=== PATIENT | female | born 1935 | race Caucasian/White ===

== ENCOUNTER 2018-07-17 14:01 | Observation (INO) ==
[2018-07-17] MEDS ORDERED: ACETAMINOPHEN 325 MG TABLET PO PRN ×2 (14:10→14:11)
[2018-07-17] MEDS ORDERED: ONDANSETRON 4 MG/2 ML VIAL IV PRN ×2 (14:10→14:11)
[2018-07-17] MEDS ORDERED: ZALEPLON 5 MG CAPSULE PO PRN ×2 (14:10→14:11)
[2018-07-17] MEDS ORDERED: MAGNESIUM SULF RIDER 2 GM in PREMIX 1 EACH IV PRN (14:11)
[2018-07-17] MEDS ORDERED: PROMETHAZINE 25 MG TABLET PO PRN (14:11)
[2018-07-17] MEDS ORDERED: DOCUSATE SODIUM 100 MG CAPSULE PO PRN (14:11)
[2018-07-17] MEDS ORDERED: LACTULOSE 20 GM/30 ML UDCUP PO PRN (14:11)
[2018-07-17] MEDS ORDERED: MAGNESIUM SULF RIDER 4 GM in PREMIX 1 EACH IV PRN (14:11)
[2018-07-17] MEDS ORDERED: diphenhydrAMINE CAP 25 MG CAPSULE PO PRN (14:11)
[2018-07-17] MEDS ORDERED: POTASSIUM CHLORIDE 20 MEQ TABLET PO PRN (14:11)
[2018-07-17] MEDS ORDERED: guaiFENesin/DM ER 600-30 MG TABLET PO PRN (14:11)
[2018-07-17] MEDS ORDERED: MORPHINE 4 MG/1 ML VIAL IV PRN (14:11)
[2018-07-17] MEDS ORDERED: ENOXAPARIN 40 MG/0.4 ML SYRINGE SUBCUT SCH (14:30)
[2018-07-17 15:38] LABS: Basophils # 0.1 10*3/uL (0.0-0.2); Basophils % 1.1 % (0.0-0.8); Eosinophils # 0.2 10*3/uL (0.0-0.87); Eosinophils % 3.3 % (0.00-10.9); Hematocrit 40.9 VOL% (35.7-47.0); Hemoglobin 13.4 GM/DL (12.0-16.0); Immature Granulocytes % 0.2 %; Immature Granulocytes Absolute 0.01 #; Lymphocytes # 2.2 10*3/uL (1.4-4.0); Lymphocytes % 34.4 % (21.3-54.2); Mean Corpuscular HGB Conc 32.8 GM/DL (32-36); Mean Corpuscular Hemoglobin 33 PG (27-34); Mean Platelet Volume 10.1 FL (9.6-12.0); Monocytes # 0.8 10*3/uL (0.11-0.8); Monocytes % 12.3 % (1.7-12.7); Neutrophils # 3.1 10*3/uL (1.4-7.4); Neutrophils % 48.7 % (38.7-73.9); Platelet Count 227 T/CUMM (130-400); Red Blood Count 4.09 MC/CUMM (3.8-5.5); Red Cell Distribution Width 12.9 % (9.3-17.3); White Blood Count 6.4 T/CUMM (4-12)
[2018-07-17 15:42] LABS: PT Patient Result 10.7 SECS
[2018-07-17 16:00] LABS: Albumin 4.4 G/DL (3.4-5.0); Bilirubin,Direct 0.19 MG/DL (0.0-0.20); Bilirubin,Indirect 0.5 MG/DL (0.0-1.0); Bilirubin,Total 0.7 MG/DL (0.2-1.0); Total Protein 8.4 G/DL (6.4-8.3)
[2018-07-17 16:05] LABS: Albumin 4.2 G/DL (3.4-5.0); Bilirubin,Total 0.7 MG/DL (0.2-1.0); Calcium 9.3 MG/DL (8.5-10.1); Osmolality,Calculated 268.4 MOS/KG (273-304); Potassium 3.7 MMOL/L (3.5-5.1); Risk Ratio 3.55; Thyroid Stimulating Hormone 1.34 uIU/ml (0.358-3.74); Total Protein 8.5 G/DL (6.4-8.3); VLDL CHOLESTEROL 24.2 MG/DL
[2018-07-17] MEDS ORDERED: traMADol 50 MG TABLET PO PRN (16:17)
[2018-07-17] MEDS: FOLIC ACID 1 MG TABLET PO SCH (16:21)
[2018-07-17] MEDS: DIAZEPAM 2 MG TABLET PO SCH ×2 (16:24→22:08)
[2018-07-17] MEDS: MAGNESIUM OXIDE 400 MG TABLET PO SCH ×2 (16:24→22:08)
[2018-07-17] MEDS ORDERED: DONEPEZIL 5 MG TABLET PO SCH (21:00)
[2018-07-17] MEDS: DOXYCYCLINE HYCLATE 100 MG CAPSULE PO SCH (22:07)
[2018-07-17] MEDS: SPIRONOLACTONE 25 MG TABLET PO SCH (22:07)
[2018-07-17] MEDS: DILTIAZEM CD 120 MG CAPSULE PO SCH (22:07)
[2018-07-17] MEDS: FUROSEMIDE 40 MG/4 ML VIAL IV SCH (23:24)
[2018-07-18 05:12] LABS: Basophils # 0.1 10*3/uL (0.0-0.2); Basophils % 1.5 % (0.0-0.8); Eosinophils # 0.5 10*3/uL (0.0-0.87); Hematocrit 36.3 VOL% (35.7-47.0); Hemoglobin 11.8 GM/DL (12.0-16.0); Immature Granulocytes % 0.2 %; Immature Granulocytes Absolute 0.01 #; Lymphocytes # 1.7 10*3/uL (1.4-4.0); Lymphocytes % 41.8 % (21.3-54.2); Mean Corpuscular HGB Conc 32.5 GM/DL (32-36); Mean Corpuscular Hemoglobin 33 PG (27-34); Mean Corpuscular Volume 100.3 FL (87-102); Mean Platelet Volume 9.8 FL (9.6-12.0); Monocytes # 0.5 10*3/uL (0.11-0.8); Neutrophils # 1.3 10*3/uL (1.4-7.4); Neutrophils % 30.5 % (38.7-73.9); Platelet Count 199 T/CUMM (130-400); Red Blood Count 3.62 MC/CUMM (3.8-5.5); White Blood Count 4.1 T/CUMM (4-12)
[2018-07-18 05:22] LABS: Calcium 8.6 MG/DL (8.5-10.1); Osmolality,Calculated 275.7 MOS/KG (273-304); Potassium 3.2 MMOL/L (3.5-5.1)
[2018-07-18 05:36] LABS: Eosinophils 14 % (0-10); Hypochromasia 1+; Lymphocytes 37 % (20-55); Platelet Estimate Adequate; Segmented Neutrophils 44 % (50-85); Total Cells Counted 100
[2018-07-18] MEDS ORDERED: LEVOTHYROXINE 75 MCG TABLET PO SCH (06:30)
[2018-07-18] MEDS ORDERED: POTASSIUM CHLORIDE 20 MEQ TABLET PO ONE ×3 (06:42→09:00)
[2018-07-18 08:07] VITALS: BP 117/54
[2018-07-18] MEDS: FOLIC ACID 1 MG TABLET PO SCH (08:42)
[2018-07-18] MEDS: SPIRONOLACTONE 25 MG TABLET PO SCH (08:42)
[2018-07-18] MEDS: DOXYCYCLINE HYCLATE 100 MG CAPSULE PO SCH (08:42)
[2018-07-18] MEDS: MAGNESIUM OXIDE 400 MG TABLET PO SCH (08:42)
[2018-07-18] MEDS: DILTIAZEM CD 120 MG CAPSULE PO SCH (08:42)
[2018-07-18] MEDS: FUROSEMIDE 40 MG/4 ML VIAL IV SCH (08:43)
[2018-07-18] MEDS: DIAZEPAM 2 MG TABLET PO SCH (08:43)
[2018-07-18] MEDS ORDERED: ASPIRIN EC 81 MG TABLET PO SCH (09:00)
[2018-07-18] MEDS ORDERED: PANTOPRAZOLE 40 MG TABLET PO SCH ×2 (09:00)
[2018-07-18] MEDS ORDERED: MULTIVITAMIN (BEROCCA) TABLET PO SCH (09:00)
== END 2018-07-18 10:08 | disposition home or self-care (01) ==
LOC: N.TELEN 14:57 → INTOOBSV 14:57
PROVIDERS: ADMIT Internal Medicine Cardiovascular Disease; ATTEND Internal Medicine Cardiovascular Disease

== ENCOUNTER 2019-07-15 15:24 | Observation (INO) ==
[2019-07-15] MEDS ORDERED: ONDANSETRON 4 MG/2 ML VIAL IV PRN (19:29)
[2019-07-15] MEDS ORDERED: LACTULOSE 20 GM/30 ML UDCUP PO PRN (19:29)
[2019-07-15] MEDS ORDERED: SODIUM CHLORIDE 0.9% 1,000 ML IV SCH (19:30)
[2019-07-15] MEDS ORDERED: ALUM/MAG/SIMETH/LIDO VISC 1:1 30 ML BOTTLE PO ONE (19:35)
[2019-07-15] MEDS ORDERED: ACETAMINOPHEN 325 MG TABLET PO PRN (19:35)
[2019-07-15] MEDS ORDERED: TRIAMCINOLONE 0.1% OINT 15 GM TUBE TOP PRN (19:37)
[2019-07-15] MEDS ORDERED: LORazepam 2 MG/1 ML VIAL IV PRN (19:37)
[2019-07-15] MEDS ORDERED: NITROGLYCERIN SL 0.4 MG TABLET SL PRN (19:39)
[2019-07-15] MEDS ORDERED: MULTIVITAMIN INJ 10 ML in SODIUM CHLORIDE 0.45% 1,000 ML IV SCH (20:00)
[2019-07-15] MEDS ORDERED: ENOXAPARIN 40 MG/0.4 ML SYRINGE SUBCUT SCH (21:00)
[2019-07-15] MEDS ORDERED: DONEPEZIL 10 MG TABLET PO SCH (21:00)
[2019-07-15] MEDS: DOCUSATE SODIUM 100 MG CAPSULE PO SCH (22:15)
[2019-07-15] MEDS: MAGNESIUM OXIDE 400 MG TABLET PO SCH (22:15)
[2019-07-15] MEDS: 1: THIAMINE INJ 100 MG, MULTIVITAMIN INJ 10 ML, FOLIC ACID INJ 1 MG in SODIUM CHLORIDE 0 IV SCH (22:16)
[2019-07-15 23:15] LABS: Basophils # 0.1 10*3/uL (0.0-0.2); Basophils % 1.1 % (0.0-0.8); Eosinophils # 0.2 10*3/uL (0.0-0.87); Eosinophils % 4.1 % (0.00-10.9); Hematocrit 38.1 VOL% (35.7-47.0); Hemoglobin 12.2 GM/DL (12.0-16.0); Immature Granulocytes % 0.4 %; Immature Granulocytes Absolute 0.02 #; Lymphocytes % 37.4 % (21.3-54.2); Mean Corpuscular Volume 103.5 FL (87-102); Mean Platelet Volume 10.4 FL (9.6-12.0); Monocytes % 11.4 % (1.7-12.7); Neutrophils % 45.6 % (38.7-73.9); Platelet Count 218 T/CUMM (130-400); Red Blood Count 3.68 MC/CUMM (3.8-5.5); Red Cell Distribution Width 12.7 % (9.3-17.3); White Blood Count 5.4 T/CUMM (4-12)
[2019-07-15 23:38] LABS: Albumin 3.3 G/DL (3.4-5.0); Bilirubin,Total 0.5 MG/DL (0.2-1.0); Calcium 9.3 MG/DL (8.5-10.1); Osmolality,Calculated 272.1 MOS/KG (273-304); Total Protein 7.3 G/DL (6.4-8.3)
[2019-07-15 23:41] LABS: Troponin I < 0.015 NG/ML (0.00-0.045)
[2019-07-16 05:02] LABS: Basophils # 0.1 10*3/uL (0.0-0.2); Basophils % 1.4 % (0.0-0.8); Eosinophils # 0.2 10*3/uL (0.0-0.87); Eosinophils % 4.8 % (0.00-10.9); Hematocrit 34.4 VOL% (35.7-47.0); Hemoglobin 11.4 GM/DL (12.0-16.0); Immature Granulocytes % 0.2 %; Immature Granulocytes Absolute 0.01 #; Lymphocytes # 1.7 10*3/uL (1.4-4.0); Lymphocytes % 39.8 % (21.3-54.2); Mean Corpuscular HGB Conc 33.1 GM/DL (32-36); Mean Corpuscular Volume 101.5 FL (87-102); Mean Platelet Volume 10.2 FL (9.6-12.0); Monocytes % 11.2 % (1.7-12.7); Neutrophils % 42.6 % (38.7-73.9); Platelet Count 195 T/CUMM (130-400); Red Blood Count 3.39 MC/CUMM (3.8-5.5); Red Cell Distribution Width 12.6 % (9.3-17.3); White Blood Count 4.4 T/CUMM (4-12)
[2019-07-16 05:38] LABS: Bilirubin,Total 0.6 MG/DL (0.2-1.0); Calcium 8.7 MG/DL (8.5-10.1); Total Protein 6.7 G/DL (6.4-8.3)
[2019-07-16 05:41] LABS: Troponin I < 0.015 NG/ML (0.00-0.045)
[2019-07-16 05:52] LABS: Risk Ratio 2.59; VLDL CHOLESTEROL 19.4 MG/DL
[2019-07-16] MEDS ORDERED: LEVOTHYROXINE 88 MCG TABLET PO SCH (06:30)
[2019-07-16] MEDS: 1: THIAMINE INJ 100 MG, MULTIVITAMIN INJ 10 ML, FOLIC ACID INJ 1 MG in SODIUM CHLORIDE 0 IV SCH (08:45)
[2019-07-16] MEDS ORDERED: THIAMINE 200 MG/2 ML VIAL IV SCH (09:00)
[2019-07-16] MEDS ORDERED: MELOXICAM 7.5 MG TABLET PO SCH (09:00)
[2019-07-16] MEDS ORDERED: FOLIC ACID INJ 1 MG in SYRINGE 1 EACH IV SCH (09:00)
[2019-07-16] MEDS ORDERED: CETIRIZINE 10 MG TABLET PO SCH (09:00)
[2019-07-16] MEDS ORDERED: PANTOPRAZOLE 40 MG TABLET PO SCH (09:00)
[2019-07-16] MEDS ORDERED: DILTIAZEM CD 120 MG CAPSULE PO SCH (09:00)
[2019-07-16] MEDS ORDERED: MEMANTINE 10 MG TABLET PO SCH (09:00)
[2019-07-16] MEDS ORDERED: NON-FORMULARY MEDICATION (Alendronate 70 MG) PO SCH (09:00)
[2019-07-16] MEDS ORDERED: ASPIRIN EC 81 MG TABLET PO SCH (09:00)
[2019-07-16] MEDS: DOCUSATE SODIUM 100 MG CAPSULE PO SCH (09:39)
[2019-07-16] MEDS: MAGNESIUM OXIDE 400 MG TABLET PO SCH (09:39)
[2019-07-16 10:16] LABS: Apearance,Urine CLEAR (Clear); Bacteria,Urine Occasional /HPF (Few); Bilirubin,Urine Negative (Negative); Blood, Urine Negative (Negative); Glucose,Urine (UA) Negative (Negative); Hyaline Casts,Urine 1 /LPF (0-3); Ketones,Urine Negative (Negative); Nitrite,Urine Negative (Negative); Protein,Urine Negative; RBC,Urine <1 /HPF (0-4); Squamous Epithelial Cell,Urine Occasional /HPF (0-10); Urine Color Yellow (Yellow); Urine Specific Gravity 1.006 (1.001-1.035); Urine Urobilinogen < 2.0 EU/DL (0.2-1.0); WBC,Urine 7 /HPF (0-6)
[2019-07-16 11:43] VITALS: BP 146/59
== END 2019-07-16 17:35 | disposition home health service (06) ==
LOC: N.2W
PROVIDERS: ADMIT Internal Medicine; ATTEND Internal Medicine

== ENCOUNTER 2020-10-06 18:58 | Inpatient (IN) ==
[2020-10-06] MEDS ORDERED: ONDANSETRON 4 MG/2 ML VIAL IV STA (19:44)
[2020-10-06] MEDS ORDERED: KETOROLAC 30 MG/1 ML VIAL IV STA (19:44)
[2020-10-06] MEDS ORDERED: SODIUM CHLORIDE 0.9% 500 ML IV STA (19:44)
[2020-10-06 20:42] LABS: Basophils # 0.1 10*3/uL (0.0-0.2); Basophils % 0.5 % (0.0-0.8); Eosinophils # 0.1 10*3/uL (0.0-0.87); Eosinophils % 1.5 % (0.00-10.9); Hematocrit 41.6 VOL% (35.7-47.0); Hemoglobin 13.8 GM/DL (12.0-16.0); Immature Granulocytes % 0.5 %; Immature Granulocytes Absolute 0.05 #; Lymphocytes # 1.8 10*3/uL (1.4-4.0); Lymphocytes % 18.3 % (21.3-54.2); Mean Corpuscular HGB Conc 33.2 GM/DL (32-36); Mean Corpuscular Volume 106.1 FL (87-102); Mean Platelet Volume 11.1 FL (9.6-12.0); Monocytes % 4.3 % (1.7-12.7); Neutrophils % 74.9 % (38.7-73.9); Platelet Count 182 T/CUMM (130-400); Red Blood Count 3.92 MC/CUMM (3.8-5.5); Red Cell Distribution Width 14.2 % (9.3-17.3); White Blood Count 9.6 T/CUMM (4-12)
[2020-10-06 21:03] LABS: Albumin 3.6 G/DL (3.4-5.0); Bilirubin,Total 0.5 MG/DL (0.2-1.0); Calcium 9.2 MG/DL (8.5-10.1); Osmolality,Calculated 278.5 MOS/KG (273-304); Total Protein 7.5 G/DL (6.4-8.2)
[2020-10-06] MEDS ORDERED: guaiFENesin/DM ER 600-30 MG TABLET PO PRN (21:03)
[2020-10-06] MEDS ORDERED: DEXTROSE 50% 25 GM/50 ML VIAL IV PRN (21:03)
[2020-10-06] MEDS ORDERED: hydrALAZINE 20 MG/1 ML VIAL IV PRN (21:03)
[2020-10-06] MEDS ORDERED: GLUCAGON 1 MG VIAL IM PRN (21:03)
[2020-10-06] MEDS ORDERED: ONDANSETRON 4 MG/2 ML VIAL IV PRN (21:03)
[2020-10-06] MEDS ORDERED: NICOTINE 21 MG/24 HR PATCH TRANSDERM PRN (21:03)
[2020-10-06] MEDS ORDERED: ZALEPLON 5 MG CAPSULE PO PRN (21:03)
[2020-10-06 21:33] LABS: Bilirubin,Urine Negative (Negative); Blood, Urine Negative (Negative); Glucose,Urine (UA) Negative (Negative); Hyaline Casts,Urine 4 /LPF (0-3); Ketones,Urine Negative (Negative); Mucus,Urine Occasional /LPF (Occasional); Nitrite,Urine Negative (Negative); Protein,Urine Negative; Urine Appearance CLEAR (Clear); Urine Color Straw (Yellow); Urine Specific Gravity 1.009 (1.001-1.035); Urine Urobilinogen < 2.0 EU/DL (0.2-1.0)
[2020-10-06] MEDS ORDERED: diphenhydrAMINE 50 MG/1 ML VIAL IV STA (21:34)
[2020-10-06] MEDS: MORPHINE 4 MG/1 ML VIAL IV PRN (23:20)
[2020-10-07] MEDS: DEXT 5% NACL 0.9% KCL 40 MEQ 40 MEQ/1,000 ML BAG IV SCH (01:38)
[2020-10-07 05:19] LABS: Basophils % 0.5 % (0.0-0.8); Eosinophils # 0.2 10*3/uL (0.0-0.87); Eosinophils % 1.9 % (0.00-10.9); Hematocrit 40.8 VOL% (35.7-47.0); Immature Granulocytes % 0.3 %; Immature Granulocytes Absolute 0.02 #; Lymphocytes # 2.2 10*3/uL (1.4-4.0); Lymphocytes % 28.7 % (21.3-54.2); Mean Corpuscular HGB Conc 31.9 GM/DL (32-36); Mean Corpuscular Volume 112.1 FL (87-102); Mean Platelet Volume 11.2 FL (9.6-12.0); Monocytes % 6.2 % (1.7-12.7); Neutrophils % 62.4 % (38.7-73.9); Platelet Count 167 T/CUMM (130-400); Red Blood Count 3.64 MC/CUMM (3.8-5.5); Red Cell Distribution Width 14.2 % (9.3-17.3); White Blood Count 7.8 T/CUMM (4-12)
[2020-10-07 05:46] LABS: Platelet Estimate Adequate
[2020-10-07 05:49] LABS: Albumin 3.4 G/DL (3.4-5.0); Bilirubin,Total 0.7 MG/DL (0.2-1.0); Calcium 8.7 MG/DL (8.5-10.1); Osmolality,Calculated 280.4 MOS/KG (273-304); Potassium 4.2 MMOL/L (3.5-5.1)
[2020-10-07] MEDS ORDERED: CLINDAMYCIN INJ 900 MG/50 ML PREMIX IV ONE (08:00)
[2020-10-07] MEDS: PANTOPRAZOLE 40 MG TABLET PO SCH (08:52)
[2020-10-07] MEDS ORDERED: fentaNYL 100 MCG/2 ML VIAL ONE (09:02)
[2020-10-07] MEDS ORDERED: ePHEDrine 50 MG/ML VIAL ONE (09:16)
[2020-10-07 09:46] LABS: Total Protein (Chem) 7.1 G/DL (6.4-8.3)
[2020-10-07 10:10] LABS: Albumin (SPE) 4.4 G/DL (3.2-5.3); Albumin (SPE) Rel % 61.7 %; Alpha 1 (SPE) 0.2 G/DL (0.1-0.4); Alpha 1 (SPE) Rel % 2.4 %; Alpha 2 (SPE) 0.9 G/DL (0.4-1.0); Alpha 2 (SPE) Rel % 12.2 %; Beta (SPE) 0.8 G/DL (0.5-1.1); Beta (SPE) Rel % 11.7 %; Gamma (SPE) 0.9 G/DL (0.7-1.7)
[2020-10-07] MEDS ORDERED: BISACODYL 10 MG SUPP RECTAL PRN (10:19)
[2020-10-07] MEDS ORDERED: MAGNESIUM HYDROXIDE SUSP 30 ML UDCUP PO PRN (10:19)
[2020-10-07] MEDS ORDERED: LACTULOSE 20 GM/30 ML UDCUP PO PRN (10:19)
[2020-10-07] MEDS ORDERED: PROMETHAZINE 25 MG/1 ML VIAL IM PRN (10:19)
[2020-10-07] MEDS ORDERED: NEOSTIGMINE 10 MG/10 ML VIAL ONE (10:22)
[2020-10-07] MEDS ORDERED: GLYCOPYRROLATE 0.4 MG/2 ML VIAL ONE (10:22)
[2020-10-07] MEDS ORDERED: SEVOFLURANE 1 UNIT/15 MINUTE INH ONE (10:23)
[2020-10-07] MEDS ORDERED: SODIUM CHLORIDE 0.9% 1,000 ML IV ONE (10:23)
[2020-10-07] MEDS ORDERED: ONDANSETRON 4 MG/2 ML VIAL IV PRN (10:43)
[2020-10-07] MEDS ORDERED: HYDROmorphone 2 MG/1 ML VIAL IV PRN (10:43)
[2020-10-07] MEDS ORDERED: PROMETHAZINE INJ 25 MG in SODIUM CHLORIDE 0.9% 50 ML IV PRN (10:43)
[2020-10-07] MEDS ORDERED: MEPERIDINE 25 MG/1 ML VIAL IV PRN (10:43)
[2020-10-07] MEDS ORDERED: TUBERCULIN SKIN TEST 0.1 ML SYRINGE INTRADERM ONE (11:30)
[2020-10-07] MEDS: LACTATED RINGERS 1,000 ML IV SCH (12:51)
[2020-10-07] MEDS: diphenhydrAMINE 50 MG/1 ML VIAL IV PRN ×2 (13:12→16:35)
[2020-10-07] MEDS: MORPHINE 4 MG/1 ML VIAL IV PRN (15:03)
[2020-10-07] MEDS ORDERED: TRIAMCINOLONE 0.1% OINT 15 GM TUBE TOP PRN (15:45)
[2020-10-07] MEDS ORDERED: NITROGLYCERIN SL 0.4 MG TABLET SL PRN (15:45)
[2020-10-07] MEDS: LORazepam 2 MG/1 ML VIAL IV PRN (16:34)
[2020-10-07] MEDS: CLINDAMYCIN INJ 900 MG/50 ML PREMIX IV SCH ×2 (16:55→23:06)
[2020-10-07] MEDS: DONEPEZIL 10 MG TABLET PO SCH (20:27)
[2020-10-07] MEDS: MAGNESIUM OXIDE 400 MG TABLET PO SCH (20:27)
[2020-10-07] MEDS: DOCUSATE SODIUM 100 MG CAPSULE PO SCH (20:27)
[2020-10-08] MEDS: LORazepam 2 MG/1 ML VIAL IV PRN (01:28)
[2020-10-08 05:01] LABS: Basophils % 0.3 % (0.0-0.8); Eosinophils # 0.1 10*3/uL (0.0-0.87); Eosinophils % 1.6 % (0.00-10.9); Hematocrit 35.6 VOL% (35.7-47.0); Hemoglobin 11.3 GM/DL (12.0-16.0); Immature Granulocytes % 0.5 %; Immature Granulocytes Absolute 0.03 #; Lymphocytes # 0.6 10*3/uL (1.4-4.0); Lymphocytes % 10.5 % (21.3-54.2); Mean Corpuscular HGB Conc 31.7 GM/DL (32-36); Mean Corpuscular Volume 111.6 FL (87-102); Mean Platelet Volume 11.5 FL (9.6-12.0); Monocytes % 4.9 % (1.7-12.7); Neutrophils % 82.2 % (38.7-73.9); Platelet Count 145 T/CUMM (130-400); Red Blood Count 3.19 MC/CUMM (3.8-5.5); Red Cell Distribution Width 14.3 % (9.3-17.3); White Blood Count 6.1 T/CUMM (4-12)
[2020-10-08 05:06] LABS: Osmolality,Calculated 274.8 MOS/KG (273-304); Potassium 4.7 MMOL/L (3.5-5.1)
[2020-10-08 05:48] LABS: Anisocytosis Slight; Macrocytosis 1+; Platelet Estimate Adequate
[2020-10-08] MEDS: ENOXAPARIN 30 MG/0.3 ML SYRINGE SUBCUT SCH (05:55)
[2020-10-08] MEDS: DEXT 5% NACL 0.9% KCL 40 MEQ 40 MEQ/1,000 ML BAG IV SCH ×3 (07:42→16:11)
[2020-10-08] MEDS: LACTATED RINGERS 1,000 ML IV SCH (07:43)
[2020-10-08] MEDS: ASPIRIN EC 81 MG TABLET PO SCH (08:23)
[2020-10-08] MEDS: FUROSEMIDE 20 MG TABLET PO SCH (08:24)
[2020-10-08] MEDS: PANTOPRAZOLE 40 MG TABLET PO SCH (08:24)
[2020-10-08] MEDS: DILTIAZEM CD 120 MG CAPSULE PO SCH (08:24)
[2020-10-08] MEDS: DOCUSATE SODIUM 100 MG CAPSULE PO SCH ×2 (08:24→20:46)
[2020-10-08] MEDS: MAGNESIUM OXIDE 400 MG TABLET PO SCH ×2 (08:24→20:46)
[2020-10-08] MEDS: Memantine 28 mg capsule,sprinkle,ER 24hr PO SCH (08:54)
[2020-10-08] MEDS ORDERED: LEVOTHYROXINE 88 MCG TABLET PO SCH (09:00)
[2020-10-08] MEDS: diphenhydrAMINE CAP 25 MG CAPSULE PO PRN ×2 (09:30→18:26)
[2020-10-08] MEDS: DONEPEZIL 10 MG TABLET PO SCH (20:46)
[2020-10-09] MEDS: ENOXAPARIN 30 MG/0.3 ML SYRINGE SUBCUT SCH (03:25)
[2020-10-09] MEDS: LACTATED RINGERS 1,000 ML IV SCH (03:52)
[2020-10-09 05:49] LABS: Basophils % 0.3 % (0.0-0.8); Eosinophils # 0.2 10*3/uL (0.0-0.87); Eosinophils % 2.6 % (0.00-10.9); Hematocrit 32.6 VOL% (35.7-47.0); Hemoglobin 10.6 GM/DL (12.0-16.0); Immature Granulocytes % 0.6 %; Immature Granulocytes Absolute 0.04 #; Lymphocytes # 1.3 10*3/uL (1.4-4.0); Mean Corpuscular HGB Conc 32.5 GM/DL (32-36); Mean Corpuscular Volume 110.1 FL (87-102); Mean Platelet Volume 11.7 FL (9.6-12.0); Neutrophils % 68.5 % (38.7-73.9); Platelet Count 133 T/CUMM (130-400); Red Blood Count 2.96 MC/CUMM (3.8-5.5); Red Cell Distribution Width 14.2 % (9.3-17.3); White Blood Count 6.7 T/CUMM (4-12)
[2020-10-09 06:02] LABS: Calcium 7.5 MG/DL (8.5-10.1); Osmolality,Calculated 272.8 MOS/KG (273-304); Potassium 4.8 MMOL/L (3.5-5.1)
[2020-10-09 07:31] LABS: Folate 6.38 NG/ML (5.38-24.0)
[2020-10-09] MEDS: LEVOTHYROXINE 88 MCG TABLET PO SCH (08:25)
[2020-10-09] MEDS: ASPIRIN EC 81 MG TABLET PO SCH (08:25)
[2020-10-09] MEDS: DOCUSATE SODIUM 100 MG CAPSULE PO SCH ×2 (08:25→21:23)
[2020-10-09] MEDS: DILTIAZEM CD 120 MG CAPSULE PO SCH (08:25)
[2020-10-09] MEDS: MAGNESIUM OXIDE 400 MG TABLET PO SCH ×2 (08:25→21:23)
[2020-10-09] MEDS: PANTOPRAZOLE 40 MG TABLET PO SCH (08:26)
[2020-10-09] MEDS: FUROSEMIDE 20 MG TABLET PO SCH (08:26)
[2020-10-09] MEDS: Memantine 28 mg capsule,sprinkle,ER 24hr PO SCH (10:07)
[2020-10-09] MEDS: DONEPEZIL 10 MG TABLET PO SCH (21:23)
[2020-10-10] MEDS: LACTATED RINGERS 1,000 ML IV SCH ×2 (00:43→21:45)
[2020-10-10 05:27] LABS: Basophils % 0.4 % (0.0-0.8); Eosinophils # 0.2 10*3/uL (0.0-0.87); Eosinophils % 2.5 % (0.00-10.9); Hematocrit 36.3 VOL% (35.7-47.0); Hemoglobin 11.8 GM/DL (12.0-16.0); Immature Granulocytes % 0.5 %; Immature Granulocytes Absolute 0.04 #; Lymphocytes # 1.6 10*3/uL (1.4-4.0); Lymphocytes % 18.5 % (21.3-54.2); Mean Corpuscular HGB Conc 32.5 GM/DL (32-36); Mean Platelet Volume 12.5 FL (9.6-12.0); Monocytes % 8.8 % (1.7-12.7); Neutrophils % 69.3 % (38.7-73.9); Platelet Count 126 T/CUMM (130-400); Red Blood Count 3.27 MC/CUMM (3.8-5.5); Red Cell Distribution Width 13.9 % (9.3-17.3); White Blood Count 8.4 T/CUMM (4-12)
[2020-10-10 05:47] LABS: Calcium 7.6 MG/DL (8.5-10.1); Osmolality,Calculated 263.4 MOS/KG (273-304); Potassium 4.8 MMOL/L (3.5-5.1)
[2020-10-10 05:52] LABS: Hypochromasia Slight; Microcytosis Slight
[2020-10-10] MEDS: LEVOTHYROXINE 88 MCG TABLET PO SCH (06:09)
[2020-10-10] MEDS: ENOXAPARIN 30 MG/0.3 ML SYRINGE SUBCUT SCH (06:12)
[2020-10-10] MEDS: ASPIRIN EC 81 MG TABLET PO SCH (08:29)
[2020-10-10] MEDS: DOCUSATE SODIUM 100 MG CAPSULE PO SCH ×2 (08:29→21:32)
[2020-10-10] MEDS: MAGNESIUM OXIDE 400 MG TABLET PO SCH ×2 (08:29→21:32)
[2020-10-10] MEDS: FOLIC ACID 1 MG TABLET PO SCH (08:29)
[2020-10-10] MEDS: FUROSEMIDE 20 MG TABLET PO SCH (08:30)
[2020-10-10] MEDS: DILTIAZEM CD 120 MG CAPSULE PO SCH (08:30)
[2020-10-10] MEDS: PANTOPRAZOLE 40 MG TABLET PO SCH (08:30)
[2020-10-10] MEDS: ACETAMINOPHEN 325 MG TABLET PO PRN ×2 (08:39→21:32)
[2020-10-10] MEDS: Memantine 28 mg capsule,sprinkle,ER 24hr PO SCH (09:51)
[2020-10-10] MEDS: DONEPEZIL 10 MG TABLET PO SCH (21:32)
[2020-10-11 05:28] LABS: Basophils % 0.3 % (0.0-0.8); Eosinophils # 0.2 10*3/uL (0.0-0.87); Eosinophils % 2.3 % (0.00-10.9); Hematocrit 35.5 VOL% (35.7-47.0); Hemoglobin 11.6 GM/DL (12.0-16.0); Immature Granulocytes % 0.4 %; Immature Granulocytes Absolute 0.03 #; Lymphocytes # 1.5 10*3/uL (1.4-4.0); Lymphocytes % 19.4 % (21.3-54.2); Mean Corpuscular HGB Conc 32.7 GM/DL (32-36); Mean Corpuscular Volume 108.2 FL (87-102); Mean Platelet Volume 11.5 FL (9.6-12.0); Monocytes % 12.2 % (1.7-12.7); Neutrophils % 65.4 % (38.7-73.9); Platelet Count 166 T/CUMM (130-400); Red Blood Count 3.28 MC/CUMM (3.8-5.5); Red Cell Distribution Width 13.8 % (9.3-17.3); White Blood Count 7.9 T/CUMM (4-12)
[2020-10-11 05:37] LABS: Calcium 8.6 MG/DL (8.5-10.1)
[2020-10-11] MEDS: LEVOTHYROXINE 88 MCG TABLET PO SCH (05:55)
[2020-10-11] MEDS: ENOXAPARIN 30 MG/0.3 ML SYRINGE SUBCUT SCH (05:55)
[2020-10-11] MEDS: DILTIAZEM CD 120 MG CAPSULE PO SCH (09:41)
[2020-10-11] MEDS: MAGNESIUM OXIDE 400 MG TABLET PO SCH ×2 (09:42→20:32)
[2020-10-11] MEDS: FUROSEMIDE 20 MG TABLET PO SCH (09:42)
[2020-10-11] MEDS: PANTOPRAZOLE 40 MG TABLET PO SCH (09:42)
[2020-10-11] MEDS: ASPIRIN EC 81 MG TABLET PO SCH (09:42)
[2020-10-11] MEDS: FOLIC ACID 1 MG TABLET PO SCH (09:42)
[2020-10-11] MEDS: DOCUSATE SODIUM 100 MG CAPSULE PO SCH ×2 (09:48→20:32)
[2020-10-11] MEDS: Memantine 28 mg capsule,sprinkle,ER 24hr PO SCH (09:49)
[2020-10-11] MEDS: CYPROHEPTADINE 4 MG TABLET PO SCH ×3 (14:22→20:32)
[2020-10-11] MEDS: LACTATED RINGERS 1,000 ML IV SCH (17:39)
[2020-10-11] MEDS: DONEPEZIL 10 MG TABLET PO SCH (20:32)
[2020-10-12 05:38] LABS: Basophils % 0.5 % (0.0-0.8); Eosinophils # 0.2 10*3/uL (0.0-0.87); Eosinophils % 3.6 % (0.00-10.9); Hematocrit 32.5 VOL% (35.7-47.0); Immature Granulocytes % 0.3 %; Immature Granulocytes Absolute 0.02 #; Lymphocytes # 1.3 10*3/uL (1.4-4.0); Lymphocytes % 20.4 % (21.3-54.2); Mean Corpuscular HGB Conc 33.8 GM/DL (32-36); Mean Corpuscular Volume 105.5 FL (87-102); Mean Platelet Volume 11.5 FL (9.6-12.0); Monocytes % 12.7 % (1.7-12.7); Neutrophils % 62.5 % (38.7-73.9); Platelet Count 179 T/CUMM (130-400); Red Blood Count 3.08 MC/CUMM (3.8-5.5); Red Cell Distribution Width 13.5 % (9.3-17.3); White Blood Count 6.1 T/CUMM (4-12)
[2020-10-12 05:56] LABS: Calcium 8.5 MG/DL (8.5-10.1); Osmolality,Calculated 267.2 MOS/KG (273-304); Potassium 3.5 MMOL/L (3.5-5.1)
[2020-10-12] MEDS: LEVOTHYROXINE 88 MCG TABLET PO SCH (06:25)
[2020-10-12] MEDS: ENOXAPARIN 30 MG/0.3 ML SYRINGE SUBCUT SCH (06:25)
[2020-10-12] MEDS: FOLIC ACID 1 MG TABLET PO SCH (09:01)
[2020-10-12] MEDS: CYPROHEPTADINE 4 MG TABLET PO SCH (09:01)
[2020-10-12] MEDS: DILTIAZEM CD 120 MG CAPSULE PO SCH (09:01)
[2020-10-12] MEDS: ASPIRIN EC 81 MG TABLET PO SCH (09:01)
[2020-10-12] MEDS: FUROSEMIDE 20 MG TABLET PO SCH (09:01)
[2020-10-12] MEDS: Memantine 28 mg capsule,sprinkle,ER 24hr PO SCH (09:02)
[2020-10-12] MEDS: MAGNESIUM OXIDE 400 MG TABLET PO SCH (09:02)
[2020-10-12] MEDS: PANTOPRAZOLE 40 MG TABLET PO SCH (09:02)
[2020-10-12] MEDS: DOCUSATE SODIUM 100 MG CAPSULE PO SCH (09:06)
[2020-10-12 11:39] VITALS: BP 125/48
== END 2020-10-12 16:06 | disposition swing bed (61) | DRG 522 ==
LOC: EDUNIT# → EDBD → N.ED 18:58 → SUATTDRO 21:03 → N.EDINP 21:03 → N.3E 10-07 00:30
PROVIDERS: ADMIT Internal Medicine; ATTEND Internal Medicine